=== PATIENT | male | born 1935 | race Caucasian/White ===

== ENCOUNTER 2025-02-25 12:05 | Inpatient (IN) | payer MEDICARE, OTHER ==
[~2025-02-25] VITALS: Ht 170.2 cm; Wt 78.7 kg
[2025-02-25] MEDS ORDERED: BUME2TAB7 PO (12:30)
[2025-02-25] MEDS ORDERED: APIX5TAB PO (12:30)
[2025-02-25] MEDS ORDERED: TAMS-3 PO (12:30)
[2025-02-25] MEDS ORDERED: SPIR25TA6 PO (12:30)
[2025-02-25] MEDS ORDERED: DAPA10TA PO (12:30)
[2025-02-25] MEDS: FUROSEMIDE 20 MG/2 ML VIAL IVP ONE (12:45)
[2025-02-25 13:30] LABS: PLATELET COUNT (AUTO) 51 K/uL (152-348); RED BLOOD CELL COUNT(AUTO) 2.81 MIL/uL (4.06-5.63); RED CELL DISTRIBUTION WIDTH 17.4 % (12.1-16.2); WHITE BLOOD COUNT (AUTO) 2.4 K/uL (3.6-10.2)
[2025-02-25 13:42] LABS: CREATININE 1.4 mg/dL (0.6-1.3); SODIUM SERUM 140 mmol/L (136-145); UREA NITROGEN, BLOOD 38 mg/dL (7-18)
[2025-02-25] MEDS ORDERED: FUROSEMIDE 20 MG/2 ML VIAL ONE (13:45)
[2025-02-25 14:14] LABS: ASPARTATE AMINOTRANSFERASE 22.0 U/L (15-37); TOTAL PROTEIN, SERUM 7.7 g/dL (6.4-8.2)
[2025-02-25 16:00] VITALS: BP 126/70
[2025-02-25 17:53] VITALS: BP 126/48; TEMP 98.2; O2SAT 98
[2025-02-25 19:48] VITALS: BP 126/58; TEMP 97.8; O2SAT 95
[2025-02-25] MEDS ORDERED: ONDANSETRON 4 MG/2 ML VIAL IV PRN (20:45)
[2025-02-25] MEDS ORDERED: ACETAMINOPHEN 325 MG TABLET PO PRN (20:45)
[2025-02-25] MEDS ORDERED: REMEDY ESSENTIAL ZINC PASTE 113 GM TP PRN (20:45)
[2025-02-25] MEDS: TAMSULOSIN HCL 0.4 MG CAP.SR.24H PO SCH (21:34)
[2025-02-25] MEDS: APIXABAN 5 MG TABLET PO SCH (21:38)
[2025-02-25] MEDS ORDERED: BUMETANIDE 2.5 MG/10 ML VIAL ONE (21:54)
[2025-02-25] MEDS: BUMETANIDE INJ 8 MG in IV DEXTROSE 5% 48 ML IV ONE (22:19)
[2025-02-26 00:45] VITALS: O2SAT 98
[2025-02-26 00:52] VITALS: BP 105/49; TEMP 98.5; O2SAT 94
[2025-02-26 05:36] VITALS: BP 112/49; TEMP 97.5; O2SAT 94
[2025-02-26 06:42] LABS: PLATELET COUNT (AUTO) 50 K/uL (152-348); RED BLOOD CELL COUNT(AUTO) 2.88 MIL/uL (4.06-5.63); RED CELL DISTRIBUTION WIDTH 16.4 % (12.1-16.2); WHITE BLOOD COUNT (AUTO) 2.2 K/uL (3.6-10.2)
[2025-02-26 07:13] LABS: ASPARTATE AMINOTRANSFERASE 22 U/L (15-37); CREATININE 1.5 mg/dL (0.6-1.3); SODIUM SERUM 142 mmol/L (136-145); TOTAL PROTEIN, SERUM 7.3 g/dL (6.4-8.2); UREA NITROGEN, BLOOD 43 mg/dL (7-18)
[2025-02-26 08:18] LABS: EOSINOPHILS % (MANUAL) 2 % (0-8); LYMPHOCYTES % (MANUAL) 22 % (20-40); MONOCYTES % (MANUAL) 14 % (2-10); NEUTROPHILS % (MANUAL) 62 % (42-75); PLATELET ESTIMATE DECREASED
[2025-02-26] MEDS: BUMETANIDE 1 MG TABLET PO SCH (08:30)
[2025-02-26] MEDS: SPIRONOLACTONE 25 MG TABLET PO SCH (08:32)
[2025-02-26] MEDS: DAPAGLIFLOZIN PROPANEDIOL 10 MG TABLET PO SCH (08:35)
[2025-02-26] MEDS: FUROSEMIDE 40 MG/4 ML VIAL IV SCH (09:53)
[2025-02-26 12:00] VITALS: BP 104/44; TEMP 98; O2SAT 94
[2025-02-26] MEDS: LACTULOSE 20 G/30 ML LIQUID UDC PO ONE (12:04)
[2025-02-26 19:00] VITALS: BP 112/75; TEMP 97.5; O2SAT 90
[2025-02-27 00:44] VITALS: BP 107/64; TEMP 99.2; O2SAT 96
[2025-02-27 04:02] VITALS: BP 105/64; TEMP 99.4; O2SAT 90
[2025-02-27 07:40] VITALS: BP 135/52; TEMP 97.6; O2SAT 96
[2025-02-27 08:18] LABS: PLATELET COUNT (AUTO) 64 K/uL (152-348); RED BLOOD CELL COUNT(AUTO) 3.08 MIL/uL (4.06-5.63); RED CELL DISTRIBUTION WIDTH 16.0 % (12.1-16.2); WHITE BLOOD COUNT (AUTO) 3.0 K/uL (3.6-10.2)
[2025-02-27 08:26] LABS: CREATININE 1.5 mg/dL (0.6-1.3); SODIUM SERUM 141 mmol/L (136-145); UREA NITROGEN, BLOOD 48 mg/dL (7-18)
[2025-02-27 08:32] LABS: ASPARTATE AMINOTRANSFERASE 25 U/L (15-37); TOTAL PROTEIN, SERUM 7.7 g/dL (6.4-8.2)
[2025-02-27] MEDS: BISACODYL 10 MG SUPP.RECT RC ONE (08:33)
[2025-02-27] MEDS: LACTULOSE 20 G/30 ML LIQUID UDC PO ONE (08:33)
[2025-02-27 11:01] VITALS: BP 130/65; TEMP 98.1; O2SAT 98
[2025-02-27 15:21] VITALS: BP 129/75; TEMP 98.4; O2SAT 99
[2025-02-27 22:01] VITALS: BP 102/42; TEMP 98; O2SAT 93
[2025-02-28 06:00] VITALS: BP 100/46; TEMP 98.2; O2SAT 94
[2025-02-28 07:48] VITALS: BP 111/48; TEMP 97.8; O2SAT 94
[2025-02-28 08:50] LABS: CREATININE 1.5 mg/dL (0.6-1.3); SODIUM SERUM 140 mmol/L (136-145); UREA NITROGEN, BLOOD 49 mg/dL (7-18)
[2025-02-28 11:27] VITALS: BP 104/47; TEMP 98; O2SAT 98
[2025-02-28 11:32] LABS: PLATELET COUNT (AUTO) 54 K/uL (152-348); RED BLOOD CELL COUNT(AUTO) 3.02 MIL/uL (4.06-5.63); RED CELL DISTRIBUTION WIDTH 15.8 % (12.1-16.2); WHITE BLOOD COUNT (AUTO) 2.2 K/uL (3.6-10.2)
[2025-02-28 16:14] VITALS: BP 111/41; TEMP 97.4; O2SAT 95
[2025-02-28 19:00] VITALS: BP 113/54; TEMP 97.6; O2SAT 98
[2025-03-01] VITALS (7 sets, daily range): BP systolic 96–110; BP diastolic 42–52; TEMP 97.7–98.6; O2SAT 95–97
[2025-03-01] MEDS: IV NORMAL SALINE 500 ML IV ONE (04:53)
[2025-03-01 06:59] LABS: PLATELET COUNT (AUTO) 58 K/uL (152-348); RED BLOOD CELL COUNT(AUTO) 2.92 MIL/uL (4.06-5.63); RED CELL DISTRIBUTION WIDTH 15.8 % (12.1-16.2); WHITE BLOOD COUNT (AUTO) 2.6 K/uL (3.6-10.2)
[2025-03-01 07:25] LABS: CREATININE 1.5 mg/dL (0.6-1.3); SODIUM SERUM 139 mmol/L (136-145); UREA NITROGEN, BLOOD 55 mg/dL (7-18)
[2025-03-01 09:52] LABS: EOSINOPHILS % (MANUAL) 3 % (0-8); LYMPHOCYTES % (MANUAL) 28 % (20-40); MONOCYTES % (MANUAL) 13 % (2-10); NEUTROPHILS % (MANUAL) 56 % (42-75); PLATELET ESTIMATE DECREASED
[2025-03-01] MEDS: FUROSEMIDE 20 MG/2 ML VIAL IV SCH (12:58)
[2025-03-01] MEDS: LACTULOSE 20 G/30 ML LIQUID UDC PO ONE (21:05)
[2025-03-01] MEDS: BISACODYL 10 MG SUPP.RECT RC ONE (21:06)
[2025-03-02] VITALS: BP 104/42; TEMP 98.2; O2SAT 95
[2025-03-02 04:00] VITALS: BP 105/41; TEMP 98; O2SAT 95
[2025-03-02 07:13] LABS: PLATELET COUNT (AUTO) 52 K/uL (152-348); RED BLOOD CELL COUNT(AUTO) 2.81 MIL/uL (4.06-5.63); RED CELL DISTRIBUTION WIDTH 15.9 % (12.1-16.2); WHITE BLOOD COUNT (AUTO) 2.5 K/uL (3.6-10.2)
[2025-03-02 07:34] LABS: CREATININE 1.6 mg/dL (0.6-1.3); SODIUM SERUM 140 mmol/L (136-145); UREA NITROGEN, BLOOD 53 mg/dL (7-18)
[2025-03-02 07:56] VITALS: BP 117/42; TEMP 98.4; O2SAT 94
[2025-03-02 08:29] LABS: LYMPHOCYTES % (MANUAL) 25 % (20-40); MONOCYTES % (MANUAL) 16 % (2-10); NEUTROPHILS % (MANUAL) 56 % (42-75)
[2025-03-02 08:30] LABS: EOSINOPHILS % (MANUAL) 3 % (0-8); PLATELET ESTIMATE DECREASED
[2025-03-02] MEDS ORDERED: BISACODYL 10 MG SUPP.RECT RC PRN (09:00)
[2025-03-02 11:02] VITALS: BP 120/70; TEMP 98.2; O2SAT 96
[2025-03-02 15:16] VITALS: BP 115/70; TEMP 98.2; O2SAT 100
== END 2025-03-02 20:40 | disposition home health service (06) | DRG 280 ==
LOC: ER 12:05 → TELE3 12:40
PROVIDERS: ADMIT Nurse Practitioner Acute Care; ATTEND Nurse Practitioner Acute Care
DX: I13.0 Hypertensive heart and chronic kidney disease with heart failure and stage 1 through stage 4 chronic kidney disease, or unspecified chronic kidney disease (principal); I50.33 Acute on chronic diastolic (congestive) heart failure; I21.A1 Myocardial infarction type 2; D61.818 Other pancytopenia; I48.20 Chronic atrial fibrillation, unspecified; D68.59 Other primary thrombophilia; L97.318 Non-pressure chronic ulcer of right ankle with other specified severity; N17.9 Acute kidney failure, unspecified; I42.9 Cardiomyopathy, unspecified; T50.2X6A Underdosing of carbonic-anhydrase inhibitors, benzothiadiazides and other diuretics, initial encounter; Z91.148 Patient's other noncompliance with medication regimen for other reason; Y92.039 Unspecified place in apartment as the place of occurrence of the external cause; Z86.718 Personal history of other venous thrombosis and embolism; Z79.01 Long term (current) use of anticoagulants; N18.9 Chronic kidney disease, unspecified; B19.20 Unspecified viral hepatitis C without hepatic coma; I27.20 Pulmonary hypertension, unspecified; Z87.891 Personal history of nicotine dependence; I83.013 Varicose veins of right lower extremity with ulcer of ankle; Z79.84 Long term (current) use of oral hypoglycemic drugs; Z79.899 Other long term (current) drug therapy; K74.60 Unspecified cirrhosis of liver; D75.89 Other specified diseases of blood and blood-forming organs; E78.5 Hyperlipidemia, unspecified; I08.3 Combined rheumatic disorders of mitral, aortic and tricuspid valves; Z95.828 Presence of other vascular implants and grafts; I77.6 Arteritis, unspecified; K59.00 Constipation, unspecified
CPT/HCPCS: 36415; 70030-TC; 71045; 83735; 84100; 84484; 85025; 85730; 93307; A4606; A4663; A6209; A6213; G0378; J1938; J3490; J7040; J8499

== ENCOUNTER 2025-05-08 18:20 | Inpatient (IN) | payer MEDICARE, OTHER ==
[~2025-05-08] VITALS: Ht 170.2 cm; Wt 73.3 kg
[~2025-05-08 18:20] MED LIST: APIX5TAB PO; BUME2TAB7 PO; DAPA10TA PO; SPIR25TA6 PO; TAMS0.4C PO
[2025-05-08 19:04] LABS: PLATELET COUNT (AUTO) 75 K/uL (152-348); RED BLOOD CELL COUNT(AUTO) 2.96 MIL/uL (4.06-5.63); RED CELL DISTRIBUTION WIDTH 17.1 % (12.1-16.2); WHITE BLOOD COUNT (AUTO) 3.3 K/uL (3.6-10.2)
[2025-05-08 19:11] LABS: CREATININE 2.0 mg/dL (0.6-1.3); SODIUM SERUM 139 mmol/L (136-145); UREA NITROGEN, BLOOD 44 mg/dL (7-18)
[2025-05-08 19:17] LABS: ASPARTATE AMINOTRANSFERASE 26 U/L (15-37); TOTAL PROTEIN, SERUM 8.0 g/dL (6.4-8.2)
[2025-05-08] MEDS ORDERED: BUMETANIDE 1 MG/4 ML VIAL ONE (19:34)
[2025-05-08 19:37] LABS: BAND % (MANUAL) 2 % (0-10); EOSINOPHILS % (MANUAL) 2 % (0-8); LYMPHOCYTES % (MANUAL) 11 % (20-40); MONOCYTES % (MANUAL) 11 % (2-10); NEUTROPHILS % (MANUAL) 74 % (42-75)
[2025-05-08 19:38] LABS: PLATELET ESTIMATE MARKED DECREASED
[2025-05-08] MEDS: BUMETANIDE 1 MG/4 ML VIAL IV ONE (19:39)
[2025-05-08 19:45] VITALS: BP 121/59
[2025-05-08] MEDS ORDERED: NAPR-1196 PO (19:49)
[2025-05-08] MEDS ORDERED: PANT40TA49 PO (19:49)
[2025-05-08] MEDS ORDERED: DOCU250C14 PO (19:49)
[2025-05-08 20:00] VITALS: O2SAT 96
[2025-05-08] MEDS ORDERED: ONDANSETRON 4 MG/2 ML VIAL IV PRN (21:15)
[2025-05-08] MEDS ORDERED: MAGNESIUM HYDROXIDE 30 ML LIQUID UDC PO PRN (21:15)
[2025-05-08] MEDS ORDERED: DEXTROSE 50% 50 ML DISP.SYRIN IV PRN (21:30)
[2025-05-08] MEDS ORDERED: INSULIN REGULAR, HUMAN 300 UNITS/3 ML VIAL SQ PRN (21:30)
[2025-05-08] MEDS ORDERED: INSULIN REGULAR, HUMAN 1000 UNIT/10 ML VIAL SQ PRN (21:30)
[2025-05-08 21:58] VITALS: BP 128/50; TEMP 99.1; O2SAT 98
[2025-05-09] VITALS (7 sets, daily range): BP systolic 104–129; BP diastolic 47–64; TEMP 98.3–98.8; O2SAT 94–98
[2025-05-09] MEDS: BLOOD SUGAR DIAGNOSTIC 1 EACH STRIP VI SCH (06:43)
[2025-05-09 07:34] LABS: PLATELET COUNT (AUTO) 63 K/uL (152-348); RED BLOOD CELL COUNT(AUTO) 2.90 MIL/uL (4.06-5.63); RED CELL DISTRIBUTION WIDTH 16.5 % (12.1-16.2); WHITE BLOOD COUNT (AUTO) 2.6 K/uL (3.6-10.2)
[2025-05-09 07:46] LABS: CREATININE 2.0 mg/dL (0.6-1.3); SODIUM SERUM 142 mmol/L (136-145); UREA NITROGEN, BLOOD 49 mg/dL (7-18)
[2025-05-09] MEDS: APIXABAN 5 MG TABLET PO SCH (09:00)
[2025-05-09] MEDS ORDERED: BUMETANIDE 1 MG/4 ML VIAL IV SCH (09:00)
[2025-05-09] MEDS: DOCUSATE SODIUM 250 MG CAPSULE PO SCH (09:06)
[2025-05-09] MEDS: PANTOPRAZOLE SODIUM 40 MG TABLET.DR PO SCH (09:07)
[2025-05-09] MEDS: SPIRONOLACTONE 25 MG TABLET PO SCH (09:10)
[2025-05-09] MEDS: DAPAGLIFLOZIN PROPANEDIOL 10 MG TABLET PO SCH (09:13)
[2025-05-09] MEDS: BUMETANIDE INJ 6 MG in IV DEXTROSE 5% 36 ML IV ONE (09:18)
[2025-05-09 10:59] LABS: *BILIRUBIN,URIN NEGATIVE (NEGATIVE); *BLOOD, URINE NEGATIVE (NEGATIVE); *CLARITY,URINE CLEAR (CLEAR); *COLOR,URINE YELLOW (YELLOW); *KETONES,URINE NEGATIVE (NEGATIVE); *PROTEIN,URINE NEGATIVE (NEGATIVE); *UROBILINOGEN,URINE 0.2 E.U./dl (NORMAL); LEUKOCYTE ESTERASE ,URINE NEGATIVE (NEGATIVE); NITRITE, URINE NEGATIVE (NEGATIVE); UGLUCOSE NEGATIVE (NEGATIVE)
[2025-05-09 11:01] LABS: *CREATININE,URINE 32.5 mg/dL (30-125); *SODIUM RNDM,URINE 97.0 mmol/L (40-220); *URINE TOTAL PROTEIN RANDOM 16.6 mg/dL (<150/24HR)
[2025-05-09] MEDS ORDERED: PROP10DR4 EACHEYE (12:50)
[2025-05-09] MEDS ORDERED: DONE5TAB34 PO (12:50)
[2025-05-09] MEDS: TAMSULOSIN HCL 0.4 MG CAP.SR.24H PO SCH (21:46)
[2025-05-10] VITALS (7 sets, daily range): BP systolic 101–144; BP diastolic 40–59; TEMP 97.5–98.8; O2SAT 92–97
[2025-05-10 07:53] LABS: PLATELET COUNT (AUTO) 58 K/uL (152-348); RED BLOOD CELL COUNT(AUTO) 2.90 MIL/uL (4.06-5.63); RED CELL DISTRIBUTION WIDTH 16.4 % (12.1-16.2); WHITE BLOOD COUNT (AUTO) 2.4 K/uL (3.6-10.2)
[2025-05-10 07:59] LABS: SODIUM SERUM 143 mmol/L (136-145)
[2025-05-10 08:00] LABS: ASPARTATE AMINOTRANSFERASE 24 U/L (15-37); CREATINE KINASE, TOTAL 174 U/L (39-308); CREATININE 1.8 mg/dL (0.6-1.3); TOTAL PROTEIN, SERUM 7.5 g/dL (6.4-8.2); UREA NITROGEN, BLOOD 49 mg/dL (7-18)
[2025-05-10] MEDS: ARGININE/GLUTAMINE/CALCIUM BMB 1 EACH POWD.PACK PO SCH (09:06)
[2025-05-10 09:28] LABS: LYMPHOCYTES % (MANUAL) 18 % (20-40); NEUTROPHILS % (MANUAL) 60 % (42-75)
[2025-05-10 09:29] LABS: EOSINOPHILS % (MANUAL) 5 % (0-8); MONOCYTES % (MANUAL) 17 % (2-10); PLATELET ESTIMATE DECREASED
[2025-05-10] MEDS: BUMETANIDE INJ 6 MG in IV DEXTROSE 5% 36 ML IV ONE (10:29)
[2025-05-10 14:47] LABS: IRON, SERUM 48.0 ug/dL (50-175)
[2025-05-10 14:58] LABS: *RHEUMATOID FACTOR SCREEN NEGATIVE (NEGATIVE)
[2025-05-10 15:10] LABS: HIV-1/2 ANTIBODY NON REACTIVE (NONREACTIVE)
[2025-05-10] MEDS: ZOLPIDEM 5 MG TABLET PO PRN (20:22)
[2025-05-11] VITALS (9 sets, daily range): BP systolic 99–157; BP diastolic 43–77; TEMP 97.6–98.4; O2SAT 95–99
[2025-05-11 07:40] LABS: PLATELET COUNT (AUTO) 58 K/uL (152-348); RED BLOOD CELL COUNT(AUTO) 2.97 MIL/uL (4.06-5.63); RED CELL DISTRIBUTION WIDTH 16.4 % (12.1-16.2); WHITE BLOOD COUNT (AUTO) 2.4 K/uL (3.6-10.2)
[2025-05-11 08:11] LABS: *IMMUNOGLOBULIN G, SERUM 2271 mg/dL (603-1613); IMMUNOGLOBULIN A, SERUM 376 mg/dL (61-437); IMMUNOGLOBULIN M, SERUM 132 mg/dL (15-143)
[2025-05-11 09:07] LABS: FREE KAPPA LT CHAINS SERUM 148.3 mg/L (3.3-19.4); FREE LAMBDA LT CHAIN SERUM 50.0 mg/L (5.7-26.3); KAPPA/LAMBDA RATIO SERUM 2.97 (0.26-1.65)
[2025-05-11 09:30] LABS: CREATININE 1.6 mg/dL (0.6-1.3); SODIUM SERUM 143 mmol/L (136-145); UREA NITROGEN, BLOOD 55 mg/dL (7-18)
[2025-05-11 09:36] LABS: EOSINOPHILS % (MANUAL) 4 % (0-8); LYMPHOCYTES % (MANUAL) 22 % (20-40); MONOCYTES % (MANUAL) 16 % (2-10); NEUTROPHILS % (MANUAL) 58 % (42-75); PLATELET ESTIMATE DECREASED
[2025-05-11] MEDS: BUMETANIDE 1 MG/4 ML VIAL IV SCH (10:58)
[2025-05-11] MEDS: ACETAMINOPHEN 325 MG TABLET PO PRN (12:00)
[2025-05-11 17:31] LABS: FIBRINOGEN ACTIVITY 176.0 mg/dL (210-360)
[2025-05-11] MEDS: ENOXAPARIN SODIUM 40 MG/0.4 ML DISP.SYRIN SQ SCH (21:00)
[2025-05-11] MEDS ORDERED: ENOXAPARIN SODIUM 40 MG/0.4 ML DISP.SYRIN SQ SCH (21:00)
[2025-05-12] VITALS (7 sets, daily range): BP systolic 102–118; BP diastolic 37–52; TEMP 98.2–99; O2SAT 93–97
[2025-05-12 08:40] LABS: PLATELET COUNT (AUTO) 56 K/uL (152-348); RED BLOOD CELL COUNT(AUTO) 2.85 MIL/uL (4.06-5.63); RED CELL DISTRIBUTION WIDTH 15.8 % (12.1-16.2); WHITE BLOOD COUNT (AUTO) 2.7 K/uL (3.6-10.2)
[2025-05-12 09:01] LABS: CREATININE 1.7 mg/dL (0.6-1.3); FIBRINOGEN ACTIVITY 171.0 mg/dL (210-360); SODIUM SERUM 141 mmol/L (136-145); UREA NITROGEN, BLOOD 60 mg/dL (7-18)
[2025-05-12] MEDS: BUMETANIDE INJ 6 MG in IV DEXTROSE 5% 36 ML IV ONE (09:55)
[2025-05-12] MEDS: APIXABAN 2.5 MG TABLET PO SCH (09:59)
[2025-05-12] MEDS: SOD FERRIC GLUC COMPLX/SUCROSE 125 MG in IV NORMAL SALINE 100 ML IV SCH (21:35)
[2025-05-13] VITALS (8 sets, daily range): BP systolic 95–106; BP diastolic 40–50; TEMP 97.3–97.9; O2SAT 92–97
[2025-05-13 01:10] LABS: PTH, INTACT 80 pg/mL (15-65)
[2025-05-13 01:10] LABS: FOLATE (FOLIC ACID), SERUM 9.4 ng/mL (>3.0); HEPATITIS B CORE AB, TOTAL Negative (Negative); HEPATITIS B SURFACE AB, QUAL Non Reactive (.); HEPATITIS B SURFACE AG Negative (Negative); HEPATITIS C VIRUS ANTIBODY Reactive (Non Reactive)
[2025-05-13 08:29] LABS: PLATELET COUNT (AUTO) 54 K/uL (152-348); RED BLOOD CELL COUNT(AUTO) 2.96 MIL/uL (4.06-5.63); RED CELL DISTRIBUTION WIDTH 16.0 % (12.1-16.2); WHITE BLOOD COUNT (AUTO) 2.9 K/uL (3.6-10.2)
[2025-05-13 08:38] LABS: CREATININE 1.5 mg/dL (0.6-1.3); SODIUM SERUM 139 mmol/L (136-145); UREA NITROGEN, BLOOD 60 mg/dL (7-18)
[2025-05-13] MEDS: BUMETANIDE INJ 6 MG in IV DEXTROSE 5% 36 ML IV ONE (09:24)
[2025-05-13 09:48] LABS: FIBRINOGEN ACTIVITY 199.0 mg/dL (210-360)
[2025-05-13 10:12] LABS: *ANTI-SCLERODERMA-70 AB <0.2 AI (0.0-0.9); *RNP ANTIBODIES <0.2 AI (0.0-0.9); *SJOGREN'S ANTI-SS-A <0.2 AI (0.0-0.9); *SJOGREN'S ANTI-SS-B <0.2 AI (0.0-0.9); *SMITH ANTIBODIES <0.2 AI (0.0-0.9); ANTI-DNA(DS) AB, QN 25 IU/mL (0-9); ANTI-NUCLEAR AB DIRECT Positive (Negative)
[2025-05-13 18:41] LABS: *OCCULT BLOOD STOOL NEGATIVE (NEGATIVE)
[2025-05-14] VITALS: BP 110/47; TEMP 97.7; O2SAT 93
[2025-05-14 04:00] VITALS: BP 101/43; TEMP 97.9; O2SAT 92
[2025-05-14 07:14] VITALS: BP 98/45; TEMP 97.8; O2SAT 94
[2025-05-14 07:33] LABS: RED CELL DISTRIBUTION WIDTH 15.7 % (12.1-16.2)
[2025-05-14 07:34] LABS: CREATININE 1.6 mg/dL (0.6-1.3); SODIUM SERUM 142 mmol/L (136-145); UREA NITROGEN, BLOOD 64 mg/dL (7-18)
[2025-05-14 07:36] LABS: RED BLOOD CELL COUNT(AUTO) 2.62 MIL/uL (4.06-5.63); WHITE BLOOD COUNT (AUTO) 2.3 K/uL (3.6-10.2)
[2025-05-14 08:10] LABS: PLATELET COUNT (AUTO) 49 K/uL (152-348)
[2025-05-14] MEDS: REMEDY ESSENTIAL ZINC PASTE 113 GM TP PRN (08:52)
[2025-05-14] MEDS ORDERED: APIXABAN 2.5 MG TABLET PO SCH (09:00)
[2025-05-14] MEDS: BUMETANIDE INJ 6 MG in IV DEXTROSE 5% 36 ML IV ONE (09:26)
[2025-05-14 10:31] VITALS: BP 98/42; TEMP 97.5; O2SAT 93
[2025-05-14 10:56] LABS: FIBRINOGEN ACTIVITY 168.0 mg/dL (210-360)
[2025-05-14 14:05] LABS: BAND % (MANUAL) 5 % (0-10); EOSINOPHILS % (MANUAL) 2 % (0-8); LYMPHOCYTES % (MANUAL) 27 % (20-40); MONOCYTES % (MANUAL) 13 % (2-10); NEUTROPHILS % (MANUAL) 53 % (42-75)
[2025-05-14 14:06] LABS: PLATELET ESTIMATE MARKED DECREASED
[2025-05-14 15:07] LABS: A/G RATIO 0.8 (0.7-1.7); BETA GLOBULIN 0.8 g/dL (0.7-1.3); GLOBULIN, TOTAL 3.7 g/dL (2.2-3.9); M-SPIKE Not Observed g/dL (Not Observed); PROTEIN, TOTAL 6.7 g/dL (6.0-8.5)
[2025-05-14 15:43] VITALS: BP 101/54; TEMP 98.5; O2SAT 96
[2025-05-14 19:00] VITALS: BP 98/37; TEMP 98.3; O2SAT 97
[2025-05-15] VITALS: BP 100/43; TEMP 98.3; O2SAT 94
[2025-05-15 00:57] VITALS: BP 104/47
[2025-05-15 01:44] VITALS: O2SAT 97
[2025-05-15 04:00] VITALS: BP_SYST 100; BP_SYST 101; BP_DIAS 43; BP_DIAS 54; TEMP 98.3; O2SAT 94
[2025-05-15 07:12] LABS: RED BLOOD CELL COUNT(AUTO) 2.50 MIL/uL (4.06-5.63); RED CELL DISTRIBUTION WIDTH 15.9 % (12.1-16.2); WHITE BLOOD COUNT (AUTO) 2.6 K/uL (3.6-10.2)
[2025-05-15 07:25] VITALS: BP 98/46; TEMP 98; O2SAT 94
[2025-05-15 07:33] LABS: CREATININE 1.7 mg/dL (0.6-1.3); SODIUM SERUM 141 mmol/L (136-145); UREA NITROGEN, BLOOD 68 mg/dL (7-18)
[2025-05-15 07:46] LABS: FIBRINOGEN ACTIVITY 157.0 mg/dL (210-360)
[2025-05-15 07:52] LABS: PLATELET COUNT (AUTO) 44 K/uL (152-348)
[2025-05-15 08:35] LABS: EOSINOPHILS % (MANUAL) 4 % (0-8); LYMPHOCYTES % (MANUAL) 21 % (20-40); MONOCYTES % (MANUAL) 11 % (2-10); NEUTROPHILS % (MANUAL) 64 % (42-75)
[2025-05-15 08:36] LABS: PLATELET ESTIMATE DECREASED
[2025-05-15 10:26] VITALS: BP 99/40; TEMP 97.8; O2SAT 100
[2025-05-15] MEDS ORDERED: CYANOCOBALAMIN 1000 MCG/ML VIAL IM SCH (15:30)
[2025-05-16 21:12] LABS: *HCV QUANT 1600000 IU/mL (.)
== END 2025-05-15 13:30 | disposition home health service (06) | DRG 280 ==
LOC: ER 18:20 → TELE3 21:00
PROVIDERS: ADMIT Student in an Organized Health Care Education/Training Program; ATTEND Student in an Organized Health Care Education/Training Program
DX: I50.33 Acute on chronic diastolic (congestive) heart failure (principal); J96.01 Acute respiratory failure with hypoxia; I21.A1 Myocardial infarction type 2; D61.818 Other pancytopenia; D68.59 Other primary thrombophilia; I27.22 Pulmonary hypertension due to left heart disease; Z79.01 Long term (current) use of anticoagulants; E11.40 Type 2 diabetes mellitus with diabetic neuropathy, unspecified; I13.10 Hypertensive heart and chronic kidney disease without heart failure, with stage 1 through stage 4 chronic kidney disease, or unspecified chronic kidney disease; Z95.828 Presence of other vascular implants and grafts; I35.2 Nonrheumatic aortic (valve) stenosis with insufficiency; K74.60 Unspecified cirrhosis of liver; N18.9 Chronic kidney disease, unspecified; L97.418 Non-pressure chronic ulcer of right heel and midfoot with other specified severity; L97.428 Non-pressure chronic ulcer of left heel and midfoot with other specified severity; J98.11 Atelectasis; I48.20 Chronic atrial fibrillation, unspecified; R18.8 Other ascites; I08.3 Combined rheumatic disorders of mitral, aortic and tricuspid valves; B19.20 Unspecified viral hepatitis C without hepatic coma; D72.821 Monocytosis (symptomatic); Z86.718 Personal history of other venous thrombosis and embolism; E11.22 Type 2 diabetes mellitus with diabetic chronic kidney disease; E11.51 Type 2 diabetes mellitus with diabetic peripheral angiopathy without gangrene; I87.2 Venous insufficiency (chronic) (peripheral); E11.621 Type 2 diabetes mellitus with foot ulcer; Z79.84 Long term (current) use of oral hypoglycemic drugs; Z79.899 Other long term (current) drug therapy; Z91.148 Patient's other noncompliance with medication regimen for other reason
CPT/HCPCS: 36415; 70030-TC; 71045; 74018; 76705; 76770; 82378; 82746; 82784; 83550; 83735; 83970; 84100; 84155; 84165; 84300; 84443; 84484; 85025; 85049; 85730; 86038; 86140; 86225; 86235; 86334; 86430; 86704; 86706; 86803; 86850; 86900; 86901; 87040; 87340; 87521; 87806; 94760; A4606; A4663; A6213; G0378; J1650; J1815; J2916; J3490; J8499